=== PATIENT | female | born 1965 | race Two or more races ===

== ENCOUNTER 2017-06-10 03:20 | Inpatient (IN) | payer MEDICAID ==
[~2017-06-10] VITALS: Ht 152.4 cm; Wt 91.2 kg
[2017-06-10] MEDS ORDERED: MORPHINE SULFATE 4 MG/ML, 1ML IVPush PRN (03:30)
[2017-06-10] MEDS ORDERED: SODIUM CHLORIDE FLUSH 10ML SYR IVF ONE (03:30)
[2017-06-10] MEDS ORDERED: SODIUM CHLORIDE 0.9% 1,000ML IVBOLUS ONE (03:30)
[2017-06-10] MEDS ORDERED: FAMOTIDINE 20 MG/2 ML IVP ONE (03:30)
[2017-06-10] MEDS ORDERED: ONDANSETRON 2MG/ML, 2ML IVPush ONE (03:30)
[2017-06-10] MEDS ORDERED: METF500T27 PO (03:36)
[2017-06-10] MEDS ORDERED: FAMOTIDINE 20 MG/2 ML ONE (03:55)
[2017-06-10] MEDS ORDERED: MORPHINE SULFATE 4 MG/ML, 1ML ONE (03:55)
[2017-06-10] MEDS ORDERED: ONDANSETRON 2MG/ML, 2ML ONE (03:56)
[2017-06-10 03:59] LABS: HEMATOCRIT 42.8 % (34.6-47.8); WHITE BLOOD COUNT 11.3 x10^3/uL (3.4-10)
[2017-06-10 04:08] LABS: ASPARTATE AMINO TRANSFERASE 22 U/L (15-37); BLOOD UREA NITROGEN 19 mg/dL (7-18)
[2017-06-10] MEDS: morphine SULFATE 10 MG/ML, 1ML IV PRN ×3 (04:12→14:53)
[2017-06-10 04:15] LABS: IS PT STATUS REG ER OR PRE ER? YES
[2017-06-10] MEDS ORDERED: NITROGLYCERIN 0.4 MG BOTTLE (25 TABS) SL PRN (05:00)
[2017-06-10] MEDS ORDERED: NITROGLYCERIN 0.4 MG/SPRAY SL PRN (05:00)
[2017-06-10] MEDS ORDERED: ASPIRIN 325 MG TABLET EC PO ONE (05:00)
[2017-06-10] MEDS ORDERED: MORPHINE SULFATE 4 MG/ML, 1ML IVPush ONE (05:30)
[2017-06-10 05:31] LABS: IS PT STATUS REG ER OR PRE ER? YES
[2017-06-10 08:07] VITALS: BP 144/78
[2017-06-10] MEDS ORDERED: REGADENOSON 0.4 MG/5 ML SYRINGE ONE (08:31)
[2017-06-10] MEDS: SODIUM CHLORIDE FLUSH 10ML SYR IVF SCH ×2 (10:58→21:12)
[2017-06-10 11:24] LABS: IS PT STATUS REG ER OR PRE ER? NO
[2017-06-10 11:54] VITALS: BP 146/84
[2017-06-10 14:51] VITALS: BP 144/78
[2017-06-10] MEDS: CEFTRIAXONE PMX 1GM/50ML 50 ML IV SCH (17:46)
[2017-06-10 18:18] LABS: HEMOGLOBIN 13.3 g/dL (11.7-16.4)
[2017-06-10] MEDS: METRONIDAZOLE PMX 500MG/100ML 100 ML IV SCH (18:25)
[2017-06-10 20:39] VITALS: BP 126/75
[2017-06-10] MEDS: ATORVASTATIN 40 MG TABLET PO SCH (21:11)
[2017-06-10 21:26] LABS: OCCBLD OBC PASS
[2017-06-10] MEDS ORDERED: ONDANSETRON 2MG/ML, 2ML IVPush PRN (21:30)
[2017-06-11] MEDS: METRONIDAZOLE PMX 500MG/100ML 100 ML IV SCH ×4 (00:25→23:36)
[2017-06-11] MEDS: morphine SULFATE 10 MG/ML, 1ML IV PRN ×2 (00:30→10:03)
[2017-06-11 01:26] VITALS: BP 104/70
[2017-06-11 05:11] LABS: HEMATOCRIT 40.8 % (34.6-47.8); HEMOGLOBIN 13.5 g/dL (11.7-16.4); WHITE BLOOD COUNT 11.8 x10^3/uL (3.4-10)
[2017-06-11 05:23] LABS: BLOOD UREA NITROGEN 9 mg/dL (7-18)
[2017-06-11] MEDS ORDERED: ASPIRIN 325 MG TABLET EC PO SCH (06:00)
[2017-06-11 07:00] VITALS: BP 112/72
[2017-06-11] MEDS: SODIUM CHLORIDE FLUSH 10ML SYR IVF SCH ×2 (08:17→21:50)
[2017-06-11 09:59] VITALS: BP_SYST 113; BP_SYST 96; BP_DIAS 62; BP_DIAS 75
[2017-06-11] MEDS: LISINOPRIL 5 MG TABLET PO SCH (10:03)
[2017-06-11 12:34] VITALS: BP 99/64
[2017-06-11 15:31] VITALS: BP 85/55
[2017-06-11] MEDS: CEFTRIAXONE PMX 1GM/50ML 50 ML IV SCH (15:37)
[2017-06-11] MEDS ORDERED: SODIUM CHLORIDE 0.9% 1,000ML IVBOLUS ONE (16:00)
[2017-06-11] MEDS ORDERED: GOLYTELY 4,000ML ORAL.SOL PO ONE (17:00)
[2017-06-11 20:07] VITALS: BP 93/60
[2017-06-11] MEDS: ATORVASTATIN 40 MG TABLET PO SCH (21:50)
[2017-06-12 00:21] VITALS: BP 115/75
[2017-06-12 05:59] LABS: HEMATOCRIT 38.7 % (34.6-47.8); HEMOGLOBIN 12.8 g/dL (11.7-16.4); WHITE BLOOD COUNT 11.2 x10^3/uL (3.4-10)
[2017-06-12 06:09] LABS: BLOOD UREA NITROGEN 10 mg/dL (7-18)
[2017-06-12 07:10] VITALS: BP 100/65
[2017-06-12] MEDS: LISINOPRIL 5 MG TABLET PO SCH (07:41)
[2017-06-12] MEDS: METRONIDAZOLE PMX 500MG/100ML 100 ML IV SCH ×2 (08:15→16:30)
[2017-06-12] MEDS: SODIUM CHLORIDE FLUSH 10ML SYR IVF SCH ×2 (08:22→19:43)
[2017-06-12] MEDS ORDERED: POTASSIUM CHLORIDE 40 MEQ in SODIUM CHLORIDE 0.9% 500 ML IV ONE (09:30)
[2017-06-12] MEDS ORDERED: CALCIUM GLUCONATE 4.6 MEQ in SODIUM CHLORIDE 0.9% 50 ML IV ONE (09:30)
[2017-06-12] MEDS ORDERED: PROPOFOL 10 MG/ML, 20ML ONE (13:11)
[2017-06-12] MEDS ORDERED: ONDANSETRON 2MG/ML, 2ML ONE (14:13)
[2017-06-12] MEDS ORDERED: ONDANSETRON 2MG/ML, 2ML IVPush ONE (14:30)
[2017-06-12] MEDS ORDERED: PROMETHAZINE 25 MG/ML, 1ML IV PRN (15:00)
[2017-06-12] MEDS ORDERED: EPHEDRINE 50 MG/ML, 1ML IVPush PRN (15:00)
[2017-06-12] MEDS ORDERED: hydrALAzine 20 MG/ML, 1ML IV PRN (15:00)
[2017-06-12] MEDS ORDERED: OXYcodone 5 MG/5 ML ORAL.SOL UDC PO PRN (15:00)
[2017-06-12] MEDS ORDERED: LABETALOL 5MG/ML, 20ML IV PRN (15:00)
[2017-06-12] MEDS ORDERED: ALBUTEROL SULFATE 2.5 MG/3 ML NPPB PRN (15:00)
[2017-06-12] MEDS ORDERED: METOPROLOL 1 MG/ML, 5ML IV PRN (15:00)
[2017-06-12] MEDS ORDERED: ONDANSETRON 2MG/ML, 2ML IVPush PRN (15:00)
[2017-06-12 15:12] VITALS: BP 107/68
[2017-06-12] MEDS: OMEPRAZOLE 20 MG CAPSULE.DR PO SCH ×2 (16:16→19:43)
[2017-06-12] MEDS: METOPROLOL TARTRATE 25 MG TABLET PO SCH ×2 (16:37→16:38)
[2017-06-12] MEDS: CEFTRIAXONE PMX 1GM/50ML 50 ML IV SCH (17:46)
[2017-06-12] MEDS: morphine SULFATE 10 MG/ML, 1ML IV PRN (17:53)
[2017-06-12] MEDS: ONDANSETRON 2MG/ML, 2ML IVPush PRN (18:08)
[2017-06-12 19:40] VITALS: BP 99/66
[2017-06-12] MEDS: ATORVASTATIN 40 MG TABLET PO SCH (19:43)
[2017-06-13] MEDS: METRONIDAZOLE PMX 500MG/100ML 100 ML IV SCH ×2 (00:10→08:53)
[2017-06-13 00:13] VITALS: BP 100/66
[2017-06-13 04:52] LABS: HEMATOCRIT 38.8 % (34.6-47.8); HEMOGLOBIN 12.8 g/dL (11.7-16.4); WHITE BLOOD COUNT 11.8 x10^3/uL (3.4-10)
[2017-06-13] MEDS: METOPROLOL TARTRATE 25 MG TABLET PO SCH ×2 (05:02→17:08)
[2017-06-13 05:10] LABS: BLOOD UREA NITROGEN 8 mg/dL (7-18)
[2017-06-13 08:33] VITALS: BP 114/73
[2017-06-13] MEDS: OMEPRAZOLE 20 MG CAPSULE.DR PO SCH ×2 (08:53→21:29)
[2017-06-13] MEDS: SODIUM CHLORIDE FLUSH 10ML SYR IVF SCH ×2 (08:53→19:56)
[2017-06-13] MEDS: ONDANSETRON 2MG/ML, 2ML IVPush PRN ×2 (10:50→19:56)
[2017-06-13 13:13] VITALS: BP 120/75
[2017-06-13] MEDS ORDERED: VANCOMYCIN PMX 1GM/200ML 200 ML IV ONE (13:30)
[2017-06-13] MEDS ORDERED: VANCOMYCIN PER PHARMACY MC PRN (13:30)
[2017-06-13] MEDS ORDERED: PHARMACOKINETIC MONITORING MC PRN (13:30)
[2017-06-13] MEDS ORDERED: PHARMACOKINETIC CONSULTATION MC ONE (13:30)
[2017-06-13] MEDS: PIPERACILLIN/TAZO/PMX 3.375GM 50 ML IV SCH ×2 (14:51→21:29)
[2017-06-13] MEDS: ACETAMINOPHEN 325 MG TABLET PO PRN ×2 (14:51→21:30)
[2017-06-13] MEDS ORDERED: OMNIPAQUE 350 MG/ML, 100ML BOTTLE ONE (16:45)
[2017-06-13] MEDS: VANCOMYCIN 1,800 MG in SODIUM CHLORIDE 0.9% 250 ML IV SCH (16:58)
[2017-06-13] MEDS: SODIUM CHLORIDE 0.9% 1,000 ML IV SCH (16:58)
[2017-06-13 17:08] VITALS: BP 106/71
[2017-06-13 20:45] VITALS: BP 172/82
[2017-06-13] MEDS: ATORVASTATIN 40 MG TABLET PO SCH (21:29)
[2017-06-13 21:30] VITALS: BP 102/77
[2017-06-14 00:53] VITALS: BP 98/65
[2017-06-14] MEDS: SODIUM CHLORIDE 0.9% 1,000 ML IV SCH ×2 (01:49→11:26)
[2017-06-14] MEDS: ONDANSETRON 2MG/ML, 2ML IVPush PRN ×4 (03:50→20:06)
[2017-06-14] MEDS: PIPERACILLIN/TAZO/PMX 3.375GM 50 ML IV SCH ×4 (03:50→20:05)
[2017-06-14 05:45] LABS: HEMATOCRIT 36.1 % (34.6-47.8); HEMOGLOBIN 11.8 g/dL (11.7-16.4); WHITE BLOOD COUNT 10.9 x10^3/uL (3.4-10)
[2017-06-14] MEDS: METOPROLOL TARTRATE 25 MG TABLET PO SCH ×2 (05:54→17:59)
[2017-06-14] MEDS: VANCOMYCIN 1,800 MG in SODIUM CHLORIDE 0.9% 250 ML IV SCH ×2 (05:54→17:02)
[2017-06-14 06:05] LABS: ASPARTATE AMINO TRANSFERASE 128 U/L (15-37); BLOOD UREA NITROGEN 5 mg/dL (7-18)
[2017-06-14 06:51] VITALS: BP 91/52
[2017-06-14] MEDS: OMEPRAZOLE 20 MG CAPSULE.DR PO SCH ×2 (09:17→20:05)
[2017-06-14] MEDS: SODIUM CHLORIDE FLUSH 10ML SYR IVF SCH ×2 (09:18→20:05)
[2017-06-14] MEDS: PROMETHAZINE 25 MG/ML, 1ML IM PRN ×2 (11:26→22:01)
[2017-06-14 13:47] VITALS: BP 131/85
[2017-06-14] MEDS: ACETAMINOPHEN 325 MG TABLET PO PRN (17:11)
[2017-06-14 18:47] VITALS: BP 101/66
[2017-06-14] MEDS: ATORVASTATIN 40 MG TABLET PO SCH (20:05)
[2017-06-15] MEDS: ONDANSETRON 2MG/ML, 2ML IVPush PRN ×3 (01:23→21:11)
[2017-06-15 02:03] VITALS: BP 121/70
[2017-06-15] MEDS: PIPERACILLIN/TAZO/PMX 3.375GM 50 ML IV SCH ×4 (02:55→23:45)
[2017-06-15] MEDS: METOCLOPRAMIDE 5 MG/ML, 2ML IVPush PRN ×2 (02:55→13:00)
[2017-06-15 04:45] LABS: HEMATOCRIT 35.4 % (34.6-47.8); HEMOGLOBIN 11.6 g/dL (11.7-16.4)
[2017-06-15 04:49] LABS: ASPARTATE AMINO TRANSFERASE 120 U/L (15-37); BLOOD UREA NITROGEN 12 mg/dL (7-18)
[2017-06-15] MEDS: VANCOMYCIN 1,800 MG in SODIUM CHLORIDE 0.9% 250 ML IV SCH (04:59)
[2017-06-15] MEDS: METOPROLOL TARTRATE 25 MG TABLET PO SCH ×2 (05:00→18:10)
[2017-06-15] MEDS: PROMETHAZINE 25 MG/ML, 1ML IM PRN ×3 (05:13→20:39)
[2017-06-15 07:23] VITALS: BP 119/70
[2017-06-15] MEDS: ACETAMINOPHEN 325 MG TABLET PO PRN (08:40)
[2017-06-15] MEDS: SODIUM CHLORIDE FLUSH 10ML SYR IVF SCH ×2 (08:41→20:40)
[2017-06-15] MEDS: OMEPRAZOLE 20 MG CAPSULE.DR PO SCH ×2 (08:41→20:40)
[2017-06-15 13:36] VITALS: BP 117/74
[2017-06-15] MEDS ORDERED: HYDROmorphone 1 MG/ML, 1ML IV PRN (16:30)
[2017-06-15] MEDS: D5%-0.9% NACL+KCL 20MEQ 1,000 ML IV SCH (17:50)
[2017-06-15 18:31] VITALS: BP 114/76
[2017-06-15] MEDS: ATORVASTATIN 40 MG TABLET PO SCH (20:40)
[2017-06-16] MEDS: ONDANSETRON 2MG/ML, 2ML IVPush PRN ×2 (00:56→09:30)
[2017-06-16 01:56] VITALS: BP 130/78
[2017-06-16 05:49] LABS: HEMATOCRIT 35.8 % (34.6-47.8); HEMOGLOBIN 11.8 g/dL (11.7-16.4); WHITE BLOOD COUNT 15.5 x10^3/uL (3.4-10)
[2017-06-16 05:59] LABS: ASPARTATE AMINO TRANSFERASE 59 U/L (15-37); BLOOD UREA NITROGEN 22 mg/dL (7-18)
[2017-06-16] MEDS: METOPROLOL TARTRATE 25 MG TABLET PO SCH ×2 (06:20→17:57)
[2017-06-16] MEDS: PIPERACILLIN/TAZO/PMX 3.375GM 50 ML IV SCH ×2 (06:20→12:00)
[2017-06-16] MEDS: METOCLOPRAMIDE 5 MG/ML, 2ML IVPush PRN (06:35)
[2017-06-16 06:37] VITALS: BP 129/83
[2017-06-16] MEDS: SODIUM CHLORIDE FLUSH 10ML SYR IVF SCH ×2 (09:30→21:45)
[2017-06-16] MEDS: OMEPRAZOLE 20 MG CAPSULE.DR PO SCH ×2 (09:30→21:45)
[2017-06-16] MEDS: D5%-0.9% NACL+KCL 20MEQ 1,000 ML IV SCH (11:01)
[2017-06-16] MEDS: PROMETHAZINE 25 MG/ML, 1ML IM PRN (11:02)
[2017-06-16 13:28] VITALS: BP 124/64
[2017-06-16] MEDS ORDERED: BUPIVACAINE/PF 0.5% ONE (13:33)
[2017-06-16] MEDS ORDERED: EPINEPHRINE 1 MG/ML, 1ML ONE (13:33)
[2017-06-16] MEDS ORDERED: FENTANYL PF 100 MCG/2ML ONE ×2 (14:03→14:04)
[2017-06-16] MEDS ORDERED: MIDAZOLAM 1 MG/ML, 2ML ONE (14:04)
[2017-06-16] MEDS ORDERED: DEXAMETHASONE 4 MG/ML, 1ML ONE (14:05)
[2017-06-16] MEDS ORDERED: ALBUTEROL SULFATE 200 PUFFS/8.5 GR INH ONE (14:05)
[2017-06-16] MEDS ORDERED: NEOSTIGMINE 1 MG/ML, 10ML ONE (14:05)
[2017-06-16] MEDS ORDERED: GLYCOPYRROLATE 0.2MG/1ML, 5ML ONE (14:05)
[2017-06-16] MEDS ORDERED: PROPOFOL 10 MG/ML, 20ML ONE (14:05)
[2017-06-16] MEDS ORDERED: ONDANSETRON 2MG/ML, 2ML ONE (14:05)
[2017-06-16] MEDS ORDERED: ROCURONIUM 10 MG/ML ONE ×3 (14:05)
[2017-06-16] MEDS ORDERED: SUCCINYLCHOLINE 20 MG/ML, 10ML ONE (14:05)
[2017-06-16] MEDS ORDERED: BUPIVACAINE/PF-EPI 0.5% 1:200K IM ONE (14:27)
[2017-06-16] MEDS ORDERED: HYDROmorphone 1 MG/ML, 1ML IV PRN (15:00)
[2017-06-16] MEDS ORDERED: MIDAZOLAM 1 MG/ML, 2ML IV PRN (15:00)
[2017-06-16] MEDS ORDERED: ALBUTEROL/IPRATROPIUM 2.5MG/0.5MG, 3 ML NPPB PRN (15:00)
[2017-06-16] MEDS ORDERED: hydrALAzine 20 MG/ML, 1ML IV PRN (15:00)
[2017-06-16] MEDS ORDERED: LABETALOL 5MG/ML, 20ML IV PRN (15:00)
[2017-06-16] MEDS ORDERED: OXYcodone 5 MG/5 ML ORAL.SOL UDC PO PRN (15:00)
[2017-06-16] MEDS ORDERED: PROMETHAZINE 25 MG/ML, 1ML IV PRN (15:00)
[2017-06-16] MEDS ORDERED: FENTANYL PF 100 MCG/2ML IV PRN (15:00)
[2017-06-16] MEDS ORDERED: METOPROLOL 1 MG/ML, 5ML IV PRN (15:00)
[2017-06-16] MEDS ORDERED: ONDANSETRON 2MG/ML, 2ML IVPush PRN (15:00)
[2017-06-16] MEDS ORDERED: EPHEDRINE 50 MG/ML, 1ML IVPush PRN (15:00)
[2017-06-16] MEDS ORDERED: OXYcodone 5 MG/5 ML ORAL.SOL UDC ONE (15:47)
[2017-06-16] MEDS ORDERED: DO NOT GIVE MC SCH (17:00)
[2017-06-16] MEDS: PIPERACILLIN/TAZO/PMX 2.25GM 50 ML IVPB SCH (17:57)
[2017-06-16 18:26] VITALS: BP 128/80
[2017-06-16] MEDS ORDERED: PROMETHAZINE 25 MG/ML, 1ML IM PRN (19:00)
[2017-06-16] MEDS: ATORVASTATIN 40 MG TABLET PO SCH (21:45)
[2017-06-16] MEDS: ACETAMINOPHEN 325 MG TABLET PO PRN (23:54)
[2017-06-17] MEDS: PIPERACILLIN/TAZO/PMX 2.25GM 50 ML IVPB SCH ×4 (00:01→17:27)
[2017-06-17 01:38] VITALS: BP 114/73
[2017-06-17 05:23] LABS: HEMATOCRIT 34.2 % (34.6-47.8); HEMOGLOBIN 11.2 g/dL (11.7-16.4)
[2017-06-17 05:38] LABS: BLOOD UREA NITROGEN 25 mg/dL (7-18)
[2017-06-17 05:43] LABS: ASPARTATE AMINO TRANSFERASE 71 U/L (15-37)
[2017-06-17] MEDS: METOPROLOL TARTRATE 25 MG TABLET PO SCH ×2 (06:07→17:27)
[2017-06-17 07:42] VITALS: BP 107/71
[2017-06-17] MEDS: SODIUM CHLORIDE FLUSH 10ML SYR IVF SCH ×2 (09:42→21:27)
[2017-06-17] MEDS: OMEPRAZOLE 20 MG CAPSULE.DR PO SCH ×2 (09:43→21:27)
[2017-06-17] MEDS ORDERED: SODIUM CHLORIDE 0.9% 1,000 ML IV SCH (10:00)
[2017-06-17] MEDS: ACETAMINOPHEN 325 MG TABLET PO PRN (10:37)
[2017-06-17] MEDS: ONDANSETRON 2MG/ML, 2ML IVPush PRN (10:37)
[2017-06-17 13:15] VITALS: BP 117/75
[2017-06-17] MEDS: ATORVASTATIN 40 MG TABLET PO SCH (21:27)
[2017-06-17 21:30] VITALS: BP 146/87
[2017-06-18] MEDS: PIPERACILLIN/TAZO/PMX 2.25GM 50 ML IVPB SCH ×5 (00:07→23:43)
[2017-06-18 03:26] VITALS: BP 132/82
[2017-06-18 05:19] LABS: ASPARTATE AMINO TRANSFERASE 49 U/L (15-37); BLOOD UREA NITROGEN 27 mg/dL (7-18)
[2017-06-18 06:15] VITALS: BP 142/84
[2017-06-18] MEDS: METOPROLOL TARTRATE 25 MG TABLET PO SCH ×2 (06:21→18:26)
[2017-06-18 07:27] VITALS: BP 127/79
[2017-06-18] MEDS: OMEPRAZOLE 20 MG CAPSULE.DR PO SCH ×2 (09:15→20:38)
[2017-06-18] MEDS: SODIUM CHLORIDE FLUSH 10ML SYR IVF SCH ×2 (09:15→20:38)
[2017-06-18] MEDS ORDERED: SODIUM CHLORIDE 0.9% 1,000 ML IV SCH (11:00)
[2017-06-18 13:28] VITALS: BP 138/85
[2017-06-18] MEDS: ACETAMINOPHEN 325 MG TABLET PO PRN ×2 (13:42→20:44)
[2017-06-18 18:25] VITALS: BP 126/78
[2017-06-18 20:30] VITALS: BP 150/79
[2017-06-18] MEDS: ATORVASTATIN 40 MG TABLET PO SCH (20:38)
[2017-06-18] MEDS: ONDANSETRON 2MG/ML, 2ML IVPush PRN (20:44)
[2017-06-18] MEDS ORDERED: ALBUTEROL SULFATE 2.5 MG/3 ML ONE (21:18)
[2017-06-19 02:35] VITALS: BP 119/74
[2017-06-19 05:13] LABS: HEMOGLOBIN 10.8 g/dL (11.7-16.4); WHITE BLOOD COUNT 14.3 x10^3/uL (3.4-10)
[2017-06-19 05:38] LABS: ASPARTATE AMINO TRANSFERASE 32 U/L (15-37); BLOOD UREA NITROGEN 26 mg/dL (7-18)
[2017-06-19] MEDS: METOPROLOL TARTRATE 25 MG TABLET PO SCH (06:03)
[2017-06-19] MEDS: PIPERACILLIN/TAZO/PMX 2.25GM 50 ML IVPB SCH (06:03)
[2017-06-19 06:05] VITALS: BP 131/80
[2017-06-19] MEDS: ALBUTEROL SULFATE 2.5 MG/3 ML NPPB SCH ×4 (06:23→19:55)
[2017-06-19 08:45] VITALS: BP 138/82
[2017-06-19] MEDS: OMEPRAZOLE 20 MG CAPSULE.DR PO SCH ×2 (08:58→19:42)
[2017-06-19] MEDS: SODIUM CHLORIDE FLUSH 10ML SYR IVF SCH ×2 (09:01→19:44)
[2017-06-19] MEDS ORDERED: ATOR40TA78 PO (09:43)
[2017-06-19] MEDS ORDERED: CARV6.252 PO (09:43)
[2017-06-19] MEDS ORDERED: ASPI-621 PO (09:45)
[2017-06-19] MEDS ORDERED: ALBU18HF INH (09:56)
[2017-06-19] MEDS ORDERED: FUROSEMIDE 20 MG/2 ML IV ONE (10:00)
[2017-06-19] MEDS: ASPIRIN 81 MG TABLET EC PO SCH (11:35)
[2017-06-19 18:03] VITALS: BP 140/84
[2017-06-19] MEDS: CARVEDILOL 6.25 MG TABLET PO SCH (18:05)
[2017-06-19] MEDS: ATORVASTATIN 40 MG TABLET PO SCH (19:42)
[2017-06-19] MEDS: ONDANSETRON 2MG/ML, 2ML IVPush PRN (19:43)
[2017-06-19 19:50] VITALS: BP 137/86
[2017-06-20 01:08] VITALS: BP 146/80
[2017-06-20] MEDS: ACETAMINOPHEN 325 MG TABLET PO PRN (01:29)
[2017-06-20] MEDS: ONDANSETRON 2MG/ML, 2ML IVPush PRN (01:33)
[2017-06-20 05:55] VITALS: BP 122/75
[2017-06-20] MEDS: CARVEDILOL 6.25 MG TABLET PO SCH (05:58)
[2017-06-20] MEDS: ASPIRIN 81 MG TABLET EC PO SCH (05:58)
[2017-06-20] MEDS: ALBUTEROL SULFATE 2.5 MG/3 ML NPPB SCH (06:45)
[2017-06-20] MEDS: SODIUM CHLORIDE FLUSH 10ML SYR IVF SCH (08:43)
[2017-06-20] MEDS: OMEPRAZOLE 20 MG CAPSULE.DR PO SCH (08:43)
[2017-06-20 08:54] VITALS: BP 123/78
[2017-06-20] MEDS ORDERED: ALBUTEROL SULFATE 2.5 MG/3 ML NPPB SCH (21:00)
== END 2017-06-20 11:50 | disposition home or self-care (01) | DRG 853 ==
LOC: ED 04:47 → EDIP 05:04 → 5SO 06:44 → DCLOUNGE 06-20 11:35
PROVIDERS: ADMIT Internal Medicine; ATTEND Internal Medicine
PROC: 0DBL8ZX Excision of Transverse Colon, Via Natural or Artificial Opening Endoscopic, Diagnostic (ICD-10-PCS; 2017-06-12)
PROC: 0DBM8ZX Excision of Descending Colon, Via Natural or Artificial Opening Endoscopic, Diagnostic (ICD-10-PCS; 2017-06-12)
PROC: 0DBK8ZX Excision of Ascending Colon, Via Natural or Artificial Opening Endoscopic, Diagnostic (ICD-10-PCS; principal; 2017-06-12 11:30)
PROC: 0FT44ZZ Resection of Gallbladder, Percutaneous Endoscopic Approach (ICD-10-PCS; 2017-06-16)
DX: A41.9 Sepsis, unspecified organism (principal); N17.0 Acute kidney failure with tubular necrosis; J96.01 Acute respiratory failure with hypoxia; J81.1 Chronic pulmonary edema; K81.2 Acute cholecystitis with chronic cholecystitis; K92.1 Melena; J98.11 Atelectasis; E88.81 Metabolic syndrome and other insulin resistance; I10 Essential (primary) hypertension; E11.65 Type 2 diabetes mellitus with hyperglycemia; R07.89 Other chest pain; E78.00 Pure hypercholesterolemia, unspecified; E78.1 Pure hyperglyceridemia; E78.5 Hyperlipidemia, unspecified; K21.9 Gastro-esophageal reflux disease without esophagitis; K64.0 First degree hemorrhoids; K66.0 Peritoneal adhesions (postprocedural) (postinfection); K76.0 Fatty (change of) liver, not elsewhere classified; M41.9 Scoliosis, unspecified; M45.9 Ankylosing spondylitis of unspecified sites in spine; Z83.3 Family history of diabetes mellitus
CPT/HCPCS: 36415; 71010; 71020; 74022; 74174; 74176; 76700; 76770; 78227; 78452; 80048; 80053; 80061; 80202; 80307; 81001; 82272; 82962; 83605; 83690; 83735; 84484; 84703; 85014; 85018; 85025; 85610; 87040; 87046; 87086; 87324; 88304; 88305; 89055; 93005; 93017; 93306; 94640; 96374; 96375; J0171; J0610; J0696; J1100; J2250; J2405; J2543; J2550; J2704; J2710; J2785; J3010; J3370; J3480; J3490; J7613; Q9967; A9502; A9537; C9898; G0479; J0330; J1940; J2270; J2765; J7030; J7040; J7050; S0028